=== PATIENT | female | born 1995 | race Caucasian/White ===

== ENCOUNTER 2023-10-26 19:35 | Emergency (ER) | payer MEDICAID ==
[~2023-10-26] VITALS: Ht 149.9 cm; Wt 61.2 kg
[2023-10-26 19:45] VITALS: BP 114/54; PULSE 85; RESP 16; TEMP 98.5; O2SAT 98
[2023-10-26] MEDS ORDERED: DICL50TA9 MT (21:05)
== END 2023-10-26 21:39 | disposition home or self-care (01) ==
LOC: ER 19:35
DX: M54.50 Low back pain, unspecified (principal); D64.9 Anemia, unspecified; Z98.890 Other specified postprocedural states
CPT/HCPCS: 81025; 99282; 99283